=== PATIENT | female | born 2000 | race Caucasian/White ===

== ENCOUNTER 2019-06-29 20:59 | Emergency (ER) | payer OTHER ==
[~2019-06-29] VITALS: Ht 162.6 cm; Wt 52.2 kg
--- NOTE | 2019-06-29 20:59 | NUR ---
PT TAKEN TO BED 3
[2019-06-29 21:00] VITALS: BP 145/85
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
--- NOTE | 2019-06-29 22:01 | NUR ---
Dr. Au examining patient.
[2019-06-29] MEDS ORDERED: ACETAMINOPHEN EXTRA STRENGTH 500 MG TAB PO ONE (22:10)
[2019-06-29 22:24] VITALS: BP 118/71
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
== END 2019-06-29 22:26 | disposition home or self-care (01) ==
LOC: MED 20:59
DX: O26.891 Other specified pregnancy related conditions, first trimester (principal); S60.311A Abrasion of right thumb, initial encounter; M79.621 Pain in right upper arm; Z90.89 Acquired absence of other organs; Z86.39 Personal history of other endocrine, nutritional and metabolic disease; Z3A.01 Less than 8 weeks gestation of pregnancy; Y04.1XXA Assault by human bite, initial encounter; Y93.89 Activity, other specified; Y92.89 Other specified places as the place of occurrence of the external cause; Y99.8 Other external cause status
CPT/HCPCS: 81002; 81025; 99283